=== PATIENT | female | born 1990 | race Caucasian/White ===

== ENCOUNTER → 2016-12-09 | Outpatient (CLI) | payer OTHER ==
--- NOTE | 2016-12-09 21:11 | ECHO ---
DATE OF PROCEDURE: 12/09/2016 REFERRING PHYSICIAN: Madan Corbett MD INDICATION: Marfan syndrome. HEIGHT: 74 inches WEIGHT: 155 pounds MEASUREMENTS: Aortic root: 2.9 cm Left atrium: 3.7 cm Ventricular septum: 1.09 cm Posterior wall: 1.05 cm Left ventricle diastole: 3.8 cm LVOT: 2.1 cm Proximal ascending aorta: 2.4 cm DOPPLER MEASUREMENTS: Aortic valve velocity: 131 cm/s LVOT velocity: 110 cm/s LVOT VTI: 26.9 cm Mild mitral regurgitation within normal limits. Mitral E velocity: 104 cm/s Mitral A velocity: 66.1 cm/s Mitral deceleration time: 204 ms Very mild tricuspid regurgitation. Very mild pulmonic regurgitation. Pulmonary acceleration time: 165 ms (normal). MITRAL ANNULAR TISSUE DOPPLER: E prime septal: 8.6 cm/s E prime lateral: 14.1 cm/s DESCRIPTION: Rhythm was predominantly sinus bradycardia. Image quality was good. This is a 2D, M-mode, color flow Doppler and pulse wave Doppler examination that included mitral annular tissue Doppler. No pericardial effusion. A false tendon was present at the left ventricle apex (normal variant). CONCLUSIONS: 1. Normal echocardiogram Doppler. 2. Aortic root normal in size at both the level of the sinus Valsalva and proximal ascending aorta. Aortic arch appears to be normal in size by visual assessment. 3. Normal left ventricle (LV) internal dimensions, wall thickness, wall motion, wall thickening, systolic and diastolic function.
== END ==
LOC: M CARPUL 10:33
PROVIDERS: ATTEND Emergency Medicine
DX: M35.7 Hypermobility syndrome (principal)